=== PATIENT | male | born 1950 | race Caucasian/White ===

== ENCOUNTER 2019-09-01 03:13 | Observation (INO) | payer MEDICARE, OTHER ==
[2019-09-01 03:23] LABS: Glucose,Whole Blood 106 mg/dL (75-99)
--- NOTE | 2019-09-01 03:46 | ED ---
Altered Mental Status HPI - General Chief Complaint: Altered Mental Status Stated Complaint: Altered mental status Time Seen by Provider: 09/01/19 03:26 Source: EMS Mode of arrival: EMS - History of Present Illness Initial Comments: This patient is 69-year-old man brought to the emergency department by EMS. The patient reports that family member at activated EMS. Lasting he remembers he had gone to bed, but had gotten up to use the bathroom. He states that he then woke up on the floor. He believes that his cousin had phoned EMS. Patient denies any symptoms and states that he feels pre-well. Patient denies chest pain, dyspnea, palpitations. No neurologic symptoms. MD Complaint: confusion -: unknown - Related Data Allergies Allergy/AdvReac Type Severity Reaction Status Date / Time No Known Allergies Allergy Verified 09/01/19 03:22 Review of Systems ROS Statement: Those systems with pertinent positive or pertinent negative responses have been documented in the HPI. ROS Other: All systems not noted in ROS Statement are negative. Constitutional: Denies: fever, chills, weakness Eyes: Denies: vision change Respiratory: Denies: cough, dyspnea Cardiovascular: Reports: as per HPI, syncope. Denies: chest pain, palpitations, dyspnea on exertion, orthopnea, edema Gastrointestinal: Denies: abdominal pain, vomiting, diarrhea, melena, hematochezia Genitourinary: Denies: dysuria, hematuria Musculoskeletal: Denies: back pain Skin: Denies: rash Neurological: Reports: as per HPI, confusion. Denies: headache, weakness, numbness, paresthesias Past Medical History Past Medical History: Hyperlipidemia, Hypertension, Prostate Disorder History of Any Multi-Drug Resistant Organisms: None Reported Past Surgical History: Tonsillectomy Past Psychological History: Anxiety, Depression Smoking Status: Current every day smoker Past Alcohol Use History: None Reported Past Drug Use History: None Reported General Exam General appearance: alert, in no apparent distress Head exam: Present: atraumatic, normocephalic Eye exam: Present: normal appearance. Absent: scleral icterus, conjunctival injection ENT exam: Present: mucous membranes dry Neck exam: Present: normal inspection, full ROM. Absent: meningismus Respiratory exam: Present: normal lung sounds bilaterally. Absent: respiratory distress, wheezes, rales, rhonchi, stridor Cardiovascular Exam: Present: regular rate, normal rhythm, normal heart sounds. Absent: systolic murmur, diastolic murmur, rubs, gallop GI/Abdominal exam: Present: soft. Absent: distended, tenderness, guarding, rebound, rigid, mass, pulsatile mass Extremities exam: Present: normal inspection, normal capillary refill. Absent: pedal edema, calf tenderness Back exam: Present: normal inspection Neurological exam: Present: alert, oriented X3, CN II-XII intact. Absent: motor sensory deficit Skin exam: Present: warm, dry, intact, normal color. Absent: rash Course Vital Signs 09/01/19 09/01/19 09/01/19 03:15 04:28 05:21 Temperature 98.7 F Pulse Rate 99 101 H 102 H Respiratory 18 17 18 Rate Blood Pressure 129/89 123/89 137/97 O2 Sat by Pulse 96 97 99 Oximetry 09/01/19 06:12 Temperature 98.9 F Pulse Rate 94 Respiratory 20 Rate Blood Pressure 126/80 O2 Sat by Pulse 96 Oximetry Medical Decision Making - Lab Data Result diagrams: 09/01/19 03:20 09/01/19 03:20 Lab Results 09/01/19 09/01/19 09/01/19 Range/Units 03:20 03:20 03:20 WBC 10.1 (3.8-10.6) k/uL RBC 5.24 (4.30-5.90) m/uL Hgb 14.5 (13.0-17.5) gm/dL Hct 45.1 (39.0-53.0) % MCV 86.0 (80.0-100.0) fL MCH 27.6 (25.0-35.0) pg MCHC 32.1 (31.0-37.0) g/dL RDW 13.8 (11.5-15.5) % Plt Count 277 (150-450) k/uL Neutrophils % 74 % Lymphocytes % 14 % Monocytes % 6 % Eosinophils % 2 % Basophils % 1 % Neutrophils # 7.5 (1.3-7.7) k/uL Lymphocytes # 1.4 (1.0-4.8) k/uL Monocytes # 0.6 (0-1.0) k/uL Eosinophils # 0.2 (0-0.7) k/uL Basophils # 0.1 (0-0.2) k/uL PT 9.6 (9.0-12.0) sec INR 0.9 (<1.2) APTT 23.8 (22.0-30.0) sec Sodium 137 (137-145) mmol/L Potassium 4.5 (3.5-5.1) mmol/L Chloride 106 (98-107) mmol/L Carbon Dioxide 19 L (22-30) mmol/L Anion Gap 12 mmol/L BUN 39 H (9-20) mg/dL Creatinine 1.36 H (0.66-1.25) mg/dL Est GFR (CKD-EPI)AfAm 61 (>60 ml/min/1.73 sqM) Est GFR (CKD-EPI)NonAf 52 (>60 ml/min/1.73 sqM) Glucose 98 (74-99) mg/dL POC Glucose (mg/dL) (75-99) mg/dL POC Glu Home Health Care Case Manager ID Plasma Lactic Acid Ozzy (0.7-2.0) mmol/L Calcium 9.7 (8.4-10.2) mg/dL Total Bilirubin 0.4 (0.2-1.3) mg/dL AST 30 (17-59) U/L ALT 32 (21-72) U/L Alkaline Phosphatase 81 (38-126) U/L Troponin I (0.000-0.034) ng/mL Total Protein 7.0 (6.3-8.2) g/dL Albumin 4.2 (3.5-5.0) g/dL Urine Color Urine Appearance (Clear) Urine pH (5.0-8.0) Ur Specific [place] (1.001-1.035) Urine Protein (Negative) Urine Glucose (UA) (Negative) Urine Ketones (Negative) Urine Blood (Negative) Urine Nitrite (Negative) Urine Bilirubin (Negative) Urine Urobilinogen (<2.0) mg/dL Ur Leukocyte Esterase (Negative) Serum Alcohol <10 mg/dL 09/01/19 09/01/19 09/01/19 Range/Units 03:20 03:20 03:21 WBC (3.8-10.6) k/uL RBC (4.30-5.90) m/uL Hgb (13.0-17.5) gm/dL Hct (39.0-53.0) % MCV (80.0-100.0) fL MCH (25.0-35.0) pg MCHC (31.0-37.0) g/dL RDW (11.5-15.5) % Plt Count (150-450) k/uL Neutrophils % % Lymphocytes % % Monocytes % % Eosinophils % % Basophils % % Neutrophils # (1.3-7.7) k/uL Lymphocytes # (1.0-4.8) k/uL Monocytes # (0-1.0) k/uL Eosinophils # (0-0.7) k/uL Basophils # (0-0.2) k/uL PT (9.0-12.0) sec INR (<1.2) APTT (22.0-30.0) sec Sodium (137-145) mmol/L Potassium (3.5-5.1) mmol/L Chloride (98-107) mmol/L Carbon Dioxide (22-30) mmol/L Anion Gap mmol/L BUN (9-20) mg/dL Creatinine (0.66-1.25) mg/dL Est GFR (CKD-EPI)AfAm (>60 ml/min/1.73 sqM) Est GFR (CKD-EPI)NonAf (>60 ml/min/1.73 sqM) Glucose (74-99) mg/dL POC Glucose (mg/dL) 106 H (75-99) mg/dL POC Glu Home Health Care Case Manager ID Yadira Grant Plasma Lactic Acid Ozzy 1.3 (0.7-2.0) mmol/L Calcium (8.4-10.2) mg/dL Total Bilirubin (0.2-1.3) mg/dL AST (17-59) U/L ALT (21-72) U/L Alkaline Phosphatase (38-126) U/L Troponin I <0.012 (0.000-0.034) ng/mL Total Protein (6.3-8.2) g/dL Albumin (3.5-5.0) g/dL Urine Color Urine Appearance (Clear) Urine pH (5.0-8.0) Ur Specific [place] (1.001-1.035) Urine Protein (Negative) Urine Glucose (UA) (Negative) Urine Ketones (Negative) Urine Blood (Negative) Urine Nitrite (Negative) Urine Bilirubin (Negative) Urine Urobilinogen (<2.0) mg/dL Ur Leukocyte Esterase (Negative) Serum Alcohol mg/dL 09/01/19 Range/Units 05:12 WBC (3.8-10.6) k/uL RBC (4.30-5.90) m/uL Hgb (13.0-17.5) gm/dL Hct (39.0-53.0) % MCV (80.0-100.0) fL MCH (25.0-35.0) pg MCHC (31.0-37.0) g/dL RDW (11.5-15.5) % Plt Count (150-450) k/uL Neutrophils % % Lymphocytes % % Monocytes % % Eosinophils % % Basophils % % Neutrophils # (1.3-7.7) k/uL Lymphocytes # (1.0-4.8) k/uL Monocytes # (0-1.0) k/uL Eosinophils # (0-0.7) k/uL Basophils # (0-0.2) k/uL PT (9.0-12.0) sec INR (<1.2) APTT (22.0-30.0) sec Sodium (137-145) mmol/L Potassium (3.5-5.1) mmol/L Chloride (98-107) mmol/L Carbon Dioxide (22-30) mmol/L Anion Gap mmol/L BUN (9-20) mg/dL Creatinine (0.66-1.25) mg/dL Est GFR (CKD-EPI)AfAm (>60 ml/min/1.73 sqM) Est GFR (CKD-EPI)NonAf (>60 ml/min/1.73 sqM) Glucose (74-99) mg/dL POC Glucose (mg/dL) (75-99) mg/dL POC Glu Home Health Care Case Manager ID Plasma Lactic Acid Ozzy (0.7-2.0) mmol/L Calcium (8.4-10.2) mg/dL Total Bilirubin (0.2-1.3) mg/dL AST (17-59) U/L ALT (21-72) U/L Alkaline Phosphatase (38-126) U/L Troponin I (0.000-0.034) ng/mL Total Protein (6.3-8.2) g/dL Albumin (3.5-5.0) g/dL Urine Color Yellow Urine Appearance Clear (Clear) Urine pH 5.5 (5.0-8.0) Ur Specific [place] 1.017 (1.001-1.035) Urine Protein Negative (Negative) Urine Glucose (UA) Negative (Negative) Urine Ketones Negative (Negative) Urine Blood Negative (Negative) Urine Nitrite Negative (Negative) Urine Bilirubin Negative (Negative) Urine Urobilinogen <2.0 (<2.0) mg/dL Ur Leukocyte Esterase Negative (Negative) Serum Alcohol mg/dL - EKG Data -: EKG Interpreted by Ny EKG shows normal: sinus rhythm (Rate 97 bpm), intervals (RI interval 178 ms, normal. QRS duration 160 ms, prolonged consistent with the right bundle branch block.), QRS complexes (There is a right bundle-branch block and a left anterior fascicular block.), ST-T waves (Normal) Rate: normal Disposition Clinical Impression: Syncope Disposition: ADMITTED IP TO THIS [facility] Condition: Fair Referrals: None,Stated [REFERRING] - 1-2 days
--- NOTE | 2019-09-01 04:04 | XR ---
EXAMINATION TYPE: XR chest 1V portable DATE OF EXAM: 09/01/2019 COMPARISON: NONE HISTORY: Altered mental status TECHNIQUE: Single frontal view of the chest is obtained. FINDINGS: There is no heart failure nor confluent pneumonic infiltrate. Costophrenic angles are devendra r. There are chest leads. IMPRESSION: No active cardiopulmonary disease. Normal heart.
--- NOTE | 2019-09-01 04:05 | CT ---
EXAMINATION TYPE: CT brain wo con DATE OF EXAM: 09/01/2019 COMPARISON: None HISTORY: ams CT DLP: 1062.40 mGycm Automated exposure control for dose reduction was used. FINDINGS: There is some cerebral cortical atrophy. There is no mass effect nor midline shift. There is no sign of intracranial hemorrhage. The calvarium is intact. IMPRESSION: CEREBRAL ATROPHY. NO ACUTE INTRACRANIAL ABNORMALITY.
[2019-09-01 04:06] LABS: Basophils # (A) 0.1 k/uL (0-0.2); Basophils % (A) 1 %; Eosinophils # (A) 0.2 k/uL (0-0.7); Eosinophils % (A) 2 %; HCT 45.1 % (39.0-53.0); HGB 14.5 gm/dL (13.0-17.5); Lymphocytes # (A) 1.4 k/uL (1.0-4.8); Lymphocytes % (A) 14 %; MCH 27.6 pg (25.0-35.0); MCHC 32.1 g/dL (31.0-37.0); Mean Platelet Volume 6.8; Monocytes # (A) 0.6 k/uL (0-1.0); Monocytes % (A) 6 %; Neutrophils # (A) 7.5 k/uL (1.3-7.7); Neutrophils % (A) 74 %; Platelet Count 277 k/uL (150-450); RBC 5.24 m/uL (4.30-5.90); RDW 13.8 % (11.5-15.5); WBC 10.1 k/uL (3.8-10.6)
[2019-09-01 04:18] LABS: ALT 32 U/L (21-72); AST 30 U/L (17-59); African American GFR (CKD) 61 (>60 ml/min/1.73 sqM); Albumin 4.2 g/dL (3.5-5.0); Alcohol <10 mg/dL; Alkaline Phosphatase 81 U/L (38-126); Anion Gap 12 mmol/L; Blood Urea Nitrogen 39 mg/dL (9-20); Calcium 9.7 mg/dL (8.4-10.2); Carbon Dioxide 19 mmol/L (22-30); Chloride 106 mmol/L (98-107); Glucose 98 mg/dL (74-99); INR 0.9 (<1.2); Non-African American GFR(CKD) 52 (>60 ml/min/1.73 sqM); Partial Thromboplastin Time 23.8 sec (22.0-30.0); Potassium 4.5 mmol/L (3.5-5.1); Prothrombin Time 9.6 sec (9.0-12.0); Sodium 137 mmol/L (137-145); Total Bilirubin 0.4 mg/dL (0.2-1.3)
[2019-09-01 05:33] LABS: Appearance,Urine Clear (Clear); Bilirubin,Urine Negative (Negative); Blood,Urine Negative (Negative); Color,Urine Yellow; Glucose,Urine (UA) Negative (Negative); Ketones,Urine Negative (Negative); Leukocyte Esterase,Urine Negative (Negative); Nitrite,Urine Negative (Negative); PH, Urine 5.5 (5.0-8.0); Protein,Urine Negative (Negative); Specific Gravity,Urine 1.017 (1.001-1.035); Urobilinogen,Urine <2.0 mg/dL (<2.0)
[2019-09-01] MEDS ORDERED: NITROGLYCERIN SL TABS 0.4 MG TAB SUBLINGUAL PRN (06:22)
[2019-09-01] MEDS: SODIUM CHLORIDE 0.9% 1,000 ML IV SCH (07:37)
[2019-09-01 09:34] VITALS: BMI 30.4
[2019-09-01] MEDS ORDERED: ALPRAZolam 0.5 MG TAB PO PRN (13:46)
--- NOTE | 2019-09-01 16:16 | US ---
EXAMINATION TYPE: US carotid duplex BILAT DATE OF EXAM: 09/01/2019 COMPARISON: NONE CLINICAL HISTORY: syncope. Patient states falling over. HTN. No hx tia. EXAM MEASUREMENTS: RIGHT: Peak Systolic Velocity (PSV) cm/sec ----- Right CCA: 71.3 ----- Right ICA: 61.4 ----- Right ECA: 95.1 ICA/CCA ratio: 0.9 RIGHT: End Diastole cm/sec ----- Right CCA: 18.6 ----- Right ICA: 16.4 ----- Right ECA: 14.4 LEFT: Peak Systolic Velocity (PSV) cm/sec ----- Left CCA: 100.8 ----- Left ICA: 85.4 ----- Left ECA: 155.4 ICA/CCA ratio: 0.8 LEFT: End Diastole cm/sec ----- Left CCA: 24.5 ----- Left ICA: 24.1 ----- Left ECA: 25.3 VERTEBRALS (direction of flow): Right Vertebral: Antegrade Left Vertebral: Antegrade Rhythm: Normal No significant stenosis. Elevated left ECA. Plaque seen in bilateral bulbs extending into ICA. Ethan ateral wall thickening. IMPRESSION: There is antegrade flow in the vertebral arteries. The images and measurements suggest l ess than 50% stenosis in both internal carotid arteries. There is 50-70% stenosis in the left externa l carotid artery. Criteria for Assigning % of Stenosis / Diameter reduction (Estimation based on the indirect measurements of the internal carotid artery velocities (ICA PSV). 1. Normal (no stenosis)=ICA PSV < 125 cm/s: ratio < 2.0: ICA EDV<40 cm/s. 2. Less than 50% stenosis=ICA PSV < 125 cm/s: ratio < 2.0: ICA EDV<40 cm/s. 3. 50 to 69% stenosis=ICA PSV of 125 to 230 cm/s: ration 2.0 ? 4.0: ICA EDV 40-100 cm/s. 4. Greater than 70% stenosis to near occlusion= ICA PSV > 230 cm/s: ratio > 4.0: ICA EDV > 100 cm/s. 5. Near occlusion= ICA PSV velocities may be low or undetectable: variable ratio and ICA EDV. 6. Total occlusion=unable to detect flow.
--- NOTE | 2019-09-01 16:17 | HP ---
HISTORY AND PHYSICAL CHIEF COMPLAINT: Syncope. HISTORY OF PRESENT ILLNESS: This is the first known admission for this 69-year-old white male. He has been feeling dizzy on and off for the last 3 or 4 days. He has had no focal neurologic deficits, change in vision hearing, chest pain, palpitations, incontinence, etc. He has had no history of any neurologic problems in the past including CVAs, TIAs, seizures, head injuries, etc. Evaluation in the emergency room was unremarkable. He has never had a history of heart disease. In the emergency room, chest x-ray was unremarkable. CT of the brain demonstrated atrophy but nothing else. Electrocardiogram was sinus rhythm with incomplete right bundle branch block with no other obvious abnormalities. The laboratory studies unremarkable except for an elevated BUN and creatinine with a GFR of 52. Troponin was normal. Urine was clear. Blood alcohol was normal. He is not allergic to any medications. Surgically he has had a fracture of the hip. He does smoke but only 2-3 cigarettes a day. He does not drink alcohol. He has been told in the past that he has borderline diabetes. MEDICATIONS: At home he is on: Xanax 0.5 t.i.d. p.r.n., amlodipine 5 mg once a day. Atorvastatin 40 mg q.h.s., Wellbutrin 150 once a day, fenofibrate 48 mg once a day, hydrochlorothiazide 12.5 once a day, lisinopril 20 mg once a day, metoprolol 25 mg b.i.d., tamsulosin 0.4 once a day, and venlafaxine 150 mg once a day. PHYSICAL EXAMINATION: Blood pressure 137/91 with a pulse of 80, respirations 22, and he is afebrile. In general, he appeared to be in no acute distress. Skin color is normal. Skin is warm, dry. Lymph nodes not enlarged. Head, ears, eyes, nose, mouth and throat were normal. Carotids normal. There are no bruits. There is no neck vein distention. Chest is clear. Cardiac exam sounded like he is in sinus rhythm and no murmurs or extra sounds. Abdomen is slightly protuberant, soft, nontender without any visceromegaly or masses. Bowel sounds present. Extremities normal. Neurologically he is intact. IMPRESSION: He is admitted to the hospital with diagnoses of: 1. Syncopal episode, etiology unknown. 2. History of hypertension. 3. Chronic obstructive pulmonary disease. 4. Rule out arrhythmia, transient ischemic attack, seizure disorder, etc. PLAN: 1. Bed rest. 2. IV fluids. 3. Monitoring his vital signs and neurologic status. 4. EEG. 5. Echocardiogram. 6. Carotid duplex imaging. MMODL / IJN: [id number] /
[2019-09-01 16:24] LABS: Cholesterol 170 mg/dL (<200); HDL Cholesterol 35 mg/dL (40-60); LDL Cholesterol,Calculated 69 mg/dL (0-99); Triglycerides 330 mg/dL (<150)
[2019-09-01] MEDS: LISINOPRIL 20 MG TAB PO SCH (19:52)
[2019-09-01] MEDS: METOPROLOL TARTRATE 25 MG TAB PO SCH (19:52)
[2019-09-02] MEDS: SODIUM CHLORIDE 0.9% 1,000 ML IV SCH ×2 (05:12→08:43)
[2019-09-02 07:26] LABS: Cholesterol 165 mg/dL (<200); HDL Cholesterol 36 mg/dL (40-60); LDL Cholesterol,Calculated 75 mg/dL (0-99); Triglycerides 270 mg/dL (<150)
[2019-09-02] MEDS: ATORVASTATIN 40 MG TAB PO SCH (08:42)
[2019-09-02] MEDS: TAMSULOSIN 0.4 MG CAP.ER.24H PO SCH (08:42)
[2019-09-02] MEDS: VENLAFAXINE HCL ER 150 MG CAP PO SCH (08:42)
[2019-09-02] MEDS: LISINOPRIL 20 MG TAB PO SCH ×2 (08:42→20:12)
[2019-09-02] MEDS: ASPIRIN 325 MG TAB PO SCH (08:42)
[2019-09-02] MEDS: buPROPion XL 150 MG TAB.ER.24H PO SCH (08:42)
[2019-09-02] MEDS: HYDROCHLOROTHIAZIDE 12.5 MG CAP PO SCH (08:42)
[2019-09-02] MEDS: METOPROLOL TARTRATE 25 MG TAB PO SCH ×2 (08:42→20:12)
[2019-09-02] MEDS: FENOFIBRATE 54 MG TAB PO SCH (08:42)
[2019-09-02] MEDS: amLODIPine 5 MG TAB PO SCH (08:42)
[2019-09-02 09:13] VITALS: RESP 16
[2019-09-02] MEDS ORDERED: ACETAMINOPHEN TAB 325 MG TAB PO PRN (12:24)
--- NOTE | 2019-09-02 14:28 | PN ---
PROGRESS NOTE CHIEF COMPLAINT: Syncope. HISTORY OF PRESENT ILLNESS: This gentleman is doing well. He has had no problems. He has had no dizziness, black outs, lightheadedness, focal neurologic problems, chest pain, etc. PHYSICAL EXAMINATION: Chest is clear and cardiac exam is normal. Abdomen is soft and nontender without any masses or visceromegaly. Neurologically he is intact. Laboratory studies reveal 50 to 70% stenosis in the left external carotid, but otherwise no other abnormality. PHYSICAL EXAM: Temp is 97.8 with a pulse of 82, blood pressure 157/84. The remainder of the exam is normal. IMPRESSION: Syncope, etiology unknown. PLAN: Increase activity. If he has no further difficulty, we will probably let him go home tomorrow. MMODL / IJN: [id number] /
[2019-09-03 07:44] VITALS: BP 123/72; PULSE 75; TEMP 98.2
[2019-09-03] MEDS: FENOFIBRATE 54 MG TAB PO SCH (09:53)
[2019-09-03] MEDS: ASPIRIN 325 MG TAB PO SCH (09:53)
[2019-09-03] MEDS: ATORVASTATIN 40 MG TAB PO SCH (09:53)
[2019-09-03] MEDS: buPROPion XL 150 MG TAB.ER.24H PO SCH (09:53)
[2019-09-03] MEDS: amLODIPine 5 MG TAB PO SCH (09:54)
[2019-09-03] MEDS: METOPROLOL TARTRATE 25 MG TAB PO SCH (09:54)
[2019-09-03] MEDS: TAMSULOSIN 0.4 MG CAP.ER.24H PO SCH (09:54)
[2019-09-03] MEDS: HYDROCHLOROTHIAZIDE 12.5 MG CAP PO SCH (09:54)
[2019-09-03] MEDS: VENLAFAXINE HCL ER 150 MG CAP PO SCH (09:54)
[2019-09-03] MEDS: LISINOPRIL 20 MG TAB PO SCH (09:54)
--- NOTE | 2019-09-03 11:52 | ECHOF ---
Referral Reason:syncope MEASUREMENTS -------- HEIGHT: 182.9 cm WEIGHT: 104.3 kg BP: 106/67 RVIDd: 3.8 cm (< 3.3) IVSd: 1.9 cm (0.6 - 1.1) LVIDd: 3.4 cm (3.9 - 5.3) LVPWd: 1.9 cm (0.6 - 1.1) IVSs: 2.2 cm LVIDs: 2.3 cm LVPWs: 2.5 cm LAESV Index (A-L): 27.05 ml/m Ao Diam: 2.8 cm (2.0 - 3.7) AV Cusp: 2.2 cm (1.5 - 2.6) LA Diam: 4.1 cm (2.7 - 3.8) MV EXCURSION: 10.716 mm (> 18.000) MV EF SLOPE: 48 mm/s (70 - 150) EPSS: 0.9 cm MV E Anshu: 0.69 m/s MV DecT: 142 ms MV A Anshu: 1.22 m/s MV E/A Ratio: 0.56 AV maxP.09 mmHg AV meanP.85 mmHg RAP: 5.00 mmHg RVSP: 29.01 mmHg FINDINGS -------- Sinus rhythm. This was a technically adequate study. The left ventricular size is normal. There is severe concentric left ventricular hypertrophy. Ove rall left ventricular systolic function is normal with, an EF between 55 - 60 %. The diastolic fill ing pattern is normal for the age of the patient 13.04. The right ventricle is mildly enlarged. Normal LA size by volume 22+/-6 ml/m2. The right atrial size is normal. Interatrial and interventricular septum intact. The aortic valve was not well visualized. There is no evidence of aortic regurgitation. There is no evidence of aortic stenosis. No mitral regurgitation. Mild tricuspid regurgitation present. There is no evidence of pulmonary hypertension. The right v entricular systolic pressure, as measured by Doppler, is 29.01mmHg. There is no pulmonic regurgitation present. The aortic root size is normal. Normal inferior vena cava with normal inspiratory collapse consistent with estimated right atrial pre ssure of 5 mmHg. There is no pericardial effusion. CONCLUSIONS -------- 1. Sinus rhythm. 2. This was a technically adequate study. 3. The left ventricular size is normal. 4. There is severe concentric left ventricular hypertrophy. 5. Overall left ventricular systolic function is normal with, an EF between 55 - 60 %. 6. The diastolic filling pattern is normal for the age of the patient 13.04 7. The right ventricle is mildly enlarged. 8. Normal LA size by volume 22+/-6 ml/m2. 9. The right atrial size is normal. 10. Interatrial and interventricular septum intact. 11. The aortic valve was not well visualized. 12. There is no evidence of aortic regurgitation. 13. There is no evidence of aortic stenosis. 14. No mitral regurgitation. 15. Mild tricuspid regurgitation present. 16. There is no evidence of pulmonary hypertension. 17. The right ventricular systolic pressure, as measured by Doppler, is 29.01mmHg. 18. There is no pulmonic regurgitation present. 19. The aortic root size is normal. 20. Normal inferior vena cava with normal inspiratory collapse consistent with estimated right atrial pressure of 5 mmHg. 21. There is no pericardial effusion. COLLISION ESTIMATOR: Ángela Dumont RDCS
--- NOTE | 2019-09-03 19:48 | DS ---
DISCHARGE SUMMARY CHIEF COMPLAINT: Syncope. HISTORY OF PRESENT ILLNESS AND PHYSICAL EXAM: Details of this man's history and physical can be found in the initial workup. LABORATORY STUDIES: While he was in the hospital, he had laboratory studies, details of which can be found in the laboratory section of his chart. COURSE IN HOSPITAL: After admission he was placed on bedrest, on telemetry and he had no further problems. He had no lightheadedness, dizziness, syncope, etc. Neurologic and cardiac studies that were reported out were unremarkable. It was felt he could be discharged to outpatient followup on the and he will go home on his usual activity, diet and medications. He will be seen in the office in several days and his workup will continue. FINAL DIAGNOSIS: Syncope, etiology unknown. OPERATIONS: None. CONSULTATIONS: None. He is improved. MMAGUSTINL / SONIN: [id number] /
--- NOTE | 2019-09-03 22:45 | EEG ---
ELECTROENCEPHALOGRAM REPORT PROCEDURE DATE: 09/03/2019. ELECTROENCEPHALOGRAM (EEG) REPORT: TECHNIQUE: A routine 18 channel EEG was performed with video using the 10/20 international electrode placement system. HISTORY: Syncope. Patient presented to the emergency room after having dizzy spells for the last 3-4 days. OTHER MEDICAL HISTORY: Includes hyperlipidemia, hypertension. CURRENT MEDICATIONS: Xanax, Effexor, Flomax, metoprolol, lisinopril, hydrochlorothiazide. STUDY DURATION: 25 minutes. FINDINGS: BACKGROUND: The background activity consists of 8-9 hertz rhythmic waveforms symmetrically distributed over both posterior quadrants. ACTIVATION: Hyperventilation: Not performed. Photic stimulation: Symmetric driving seen. Sleep: None. ABNORMALITIES: None. Please note that 1 channel of this EEG was dedicated to EKG. It demonstrated a sinus rhythm. IMPRESSION: Normal EEG. No epileptiform activity was present. No seizures were recorded. MMODL / IJN: [id number] / MTDD
== END 2019-09-03 17:30 | disposition home or self-care (01) ==
LOC: EC 03:13 → 4SSUR 06:22
PROVIDERS: ADMIT Family Medicine; ATTEND Family Medicine
DX: R55 Syncope and collapse (principal); R42 Dizziness and giddiness; R41.0 Disorientation, unspecified; J44.9 Chronic obstructive pulmonary disease, unspecified; I65.22 Occlusion and stenosis of left carotid artery; R79.89 Other specified abnormal findings of blood chemistry; I45.10 Unspecified right bundle-branch block; I10 Essential (primary) hypertension; E78.5 Hyperlipidemia, unspecified; N42.9 Disorder of prostate, unspecified; F41.9 Anxiety disorder, unspecified; F32.9 Major depressive disorder, single episode, unspecified; R73.03 Prediabetes; F17.210 Nicotine dependence, cigarettes, uncomplicated; Z79.899 Other long term (current) drug therapy; Z87.81 Personal history of (healed) traumatic fracture; R94.4 Abnormal results of kidney function studies
CPT/HCPCS: 99285; 36415; 94760; 95816; 93005 ×2; 93306; 97116; 97162; 97166; 85379; 80061 ×2; 80053; 83605; 84484; 85025; 85610; 85730; 81003; 80320; 71045; 93880; 70450; G0378 ×3

== ENCOUNTER 2023-10-16 10:07 | Emergency (ER) | payer MEDICARE, OTHER ==
[2023-10-16] MEDS ORDERED: SODIUM CHLORIDE 0.9% 1,000 ML IV STA (10:13)
[2023-10-16 10:36] VITALS: RESP 18; TEMP 98.8
--- NOTE | 2023-10-16 10:38 | ED ---
Extremity Problem HPI - General Chief complaint: Extremity Injury, Lower Stated complaint: L Leg Pain Time Seen by Provider: 10/16/23 10:09 Source: patient, EMS, RN notes reviewed Mode of arrival: EMS Limitations: no limitations - History of Present Illness Initial comments: This is a 73-year-old male who presents to the emergency department for left leg pain and diarrhea. Patient reports that he had been struggling with diarrhea and dehydration for the last couple of weeks. This temporarily improved but then resumed again. However his larger concern is that yesterday his left leg has been notably swollen and firm. This is also very painful. Denies any history of similar symptoms in the past. He has no history of blood clots and is not taking any blood thinners. Denies any chest pain or shortness of breath. MD Complaint: extremity pain, extremity swelling - Related Data Home Medications Medication Instructions Recorded Confirmed ALPRAZolam [Xanax] 0.5 mg PO TID PRN 09/01/19 09/01/19 Acetaminophen Tab [Tylenol] 650 mg PO Q6H PRN 09/01/19 09/01/19 Atorvastatin [Lipitor] 40 mg PO DAILY 09/01/19 09/01/19 Fenofibrate Nanocrystallized 48 mg PO DAILY 09/01/19 09/01/19 [Fenofibrate] Metoprolol Tartrate [Lopressor] 25 mg PO BID 09/01/19 09/01/19 Tamsulosin HCl [Flomax] 0.4 mg PO DAILY 09/01/19 09/01/19 Venlafaxine HCl ER [Effexor XR] 150 mg PO W/BRKFST 09/01/19 09/01/19 amLODIPine [Norvasc] 5 mg PO DAILY 09/01/19 09/01/19 buPROPion XL [Wellbutrin XL] 150 mg PO DAILY 09/01/19 09/01/19 hydroCHLOROthiazide 12.5 mg PO DAILY 09/01/19 09/01/19 lisinopriL [Zestril] 20 mg PO BID 09/01/19 09/01/19 Previous Rx's Medication Instructions Recorded Aspirin 325 mg PO DAILY #100 tab 09/03/19 Apixaban [Eliquis Starter Pack 5 - 10 mg PO DIRECTED 30 Days 10/16/23 (for VTE)] #1 each Allergies Allergy/AdvReac Type Severity Reaction Status Date / Time No Known Allergies Allergy Verified 10/16/23 10:15 Review of Systems ROS Statement: Those systems with pertinent positive or pertinent negative responses have been documented in the HPI. ROS Other: All systems not noted in ROS Statement are negative. Past Medical History Past Medical History: Hyperlipidemia, Hypertension, Prostate Disorder Additional Past Medical History / Comment(s): Kidney Stone. Right hip fracture History of Any Multi-Drug Resistant Organisms: None Reported Past Surgical History: Tonsillectomy Additional Past Surgical History / Comment(s): Right Hip Fracture nailing; reports nails and screws have since been removed Past Anesthesia/Blood Transfusion Reactions: No Reported Reaction Past Psychological History: Anxiety, Depression Smoking Status: Former smoker Past Alcohol Use History: None Reported Past Drug Use History: None Reported - Past Family History Father Family Medical History: Cancer Mother Family Medical History: Diabetes Mellitus Additional Family Medical History / Comment(s): in her 60s Brother(s) Family Medical History: No Reported History General Exam Limitations: no limitations General appearance: alert, in no apparent distress Head exam: Present: atraumatic, normocephalic, normal inspection Respiratory exam: Present: normal lung sounds bilaterally. Absent: respiratory distress, wheezes, rales, rhonchi, stridor Cardiovascular Exam: Present: regular rate, normal rhythm, normal heart sounds. Absent: systolic murmur, diastolic murmur, rubs, gallop, clicks Extremities exam: Present: other (Left leg is swollen, firm, and erythematous. ) Neurological exam: Present: alert, oriented X3, CN II-XII intact Psychiatric exam: Present: normal affect, normal mood Skin exam: Present: warm, dry, intact Course Vital Signs 10/16/23 10/16/23 10:09 11:59 Temperature 98.8 F Pulse Rate 80 71 Respiratory 18 18 Rate Blood Pressure 111/82 114/75 O2 Sat by Pulse 100 98 Oximetry Medical Decision Making - Medical Decision Making This is a 73-year-old male who presents to the emergency department for left leg pain. Was pt. sent in by a medical professional or institution? @ -No Did you speak to anyone other than the patient for history? @ -No Did you review nursing and triage notes? @ -Yes, and I agree, it is accurate with regards to the patient's symptoms. Were old charts reviewed? @ -No Differential Diagnosis? @ -Differential Leg Pain: Leg fracture, leg sprain, DVT, PVD, arterial insufficiency, iliac artery aneurysm, cellulitis, compartment syndrome, tendinopathy, nerve entrapment, piriformis syndrome, osteoarthritis, rhabdomyolysis, myositis, cramping from an electrolyte imbalance, this is not meant to be an all inclusive list. EKG interpreted by me (3pts min.)? @ -EKG interpreted by me demonstrating the following: Sinus rhythm. Ventricular rate 76 BPM, NM interval 183 ms, QRS duration 162 ms, QTc 419 ms. X-rays interpreted by me (1pt min.)? @ -Not obtained CT interpreted by me (1pt min.)? @ -Not obtained U/S interpreted by me (1pt. min.)? @ -Duplex US of the left lower extremity obtained. My interpretation identifies a DVT. What testing was considered but not performed? (CT, X-rays, U/S, labs)? Why? @ -None What meds were considered but not given? Why? @ -None Did you discuss the management of the patient with other professionals? @ -No Did you reconcile home meds? @ -No Was smoking cessation discussed for >3mins.? @ -No Was critical care preformed (if so, how long)? @ -No Were there social determinants of health that impacted care today? How? (Homelessness, low income, unemployed, alcoholism, drug addiction, transportation, low edu. Level, literacy, decrease access to med. care, retirement, rehab)? @ -No Was there de-escalation of care discussed even if they declined? (Discuss DNR or withdrawal of care, Hospice)? @ -No What co-morbidities impacted this encounter? (DM, HTN, Smoking, COPD, CAD, Cancer, CVA, Hep., AIDS, mental health diagnosis, sleep apnea, morbid obesity)? @ -HLD, HTN Was patient admitted / discharged? @ -Discharged. Lab work obtained revealing mild leukocytosis and CRP elevation. Kidney function is decreased, however there are no prior values for comparison. Patient treated with IV fluids. He declined the need for pain medication in the emergency department. Duplex ultrasound of the left lower extremity obtained revealing a DVT extending from the left common femoral vein to the proximal calf. Findings reviewed with the patient. He had no tac hycardia, chest pain, or shortness of breath to suggest progression to a PE. Patient given a prescription for Eliquis starter pack. He was otherwise discharged home in stable condition with instruction to have close follow up with his PCP. Undiagnosed new problem with uncertain prognosis? @ -None Drug Therapy requiring intensive monitoring for toxicity (Heparin, Nitro, Insulin, Cardizem)? @ -None Were any procedures done? @ -None Diagnosis/symptom? @ -Diarrhea, DVT Acute, or Chronic, or Acute on Chronic? @ -Acute Uncomplicated (without systemic symptoms) or Complicated (systemic symptoms)? @ -Uncomplicated Side effects of treatment? @ -None Exacerbation, Progression, or Severe Exacerbation] @ -Not applicable Poses a threat to life or bodily function? @ -This will depend on how his symptoms progress Return precautions reviewed in depth, the patient is instructed to return to the emergency department with any new, worsening, or concerning symptoms. Patient verbalized understanding. This case was discussed in detail with the attending ED physician, Dr. Cross. Presentation, findings, and treatment plan discussed in detail as well. - Lab Data Result diagrams: 10/16/23 10:22 10/16/23 10:22 Lab Results 10/16/23 10/16/23 10/16/23 Range/Units 10:22 10:22 10:22 WBC 11.9 H (3.8-10.6) k/uL RBC 5.58 (4.30-5.90) m/uL Hgb 15.6 (13.0-17.5) gm/dL Hct 46.2 (39.0-53.0) % MCV 82.8 (80.0-100.0) fL MCH 27.9 (25.0-35.0) pg MCHC 33.7 (31.0-37.0) g/dL RDW 13.4 (11.5-15.5) % Plt Count 231 (150-450) k/uL MPV 8.1 Neutrophils % 83 % Lymphocytes % 7 % Monocytes % 7 % Eosinophils % 1 % Basophils % 0 % Neutrophils # 9.9 H (1.3-7.7) k/uL Lymphocytes # 0.9 L (1.0-4.8) k/uL Monocytes # 0.8 (0-1.0) k/uL Eosinophils # 0.2 (0-0.7) k/uL Basophils # 0.1 (0-0.2) k/uL Sodium 138 (137-145) mmol/L Potassium 4.2 (3.5-5.1) mmol/L Chloride 104 (98-107) mmol/L Carbon Dioxide 20 L (22-30) mmol/L Anion Gap 14 mmol/L BUN 46 H (9-20) mg/dL Creatinine 1.50 H (0.66-1.25) mg/dL Est GFR (CKD-EPI)AfAm 53 (>60 ml/min/1.73 sqM) Est GFR (CKD-EPI)NonAf 45 (>60 ml/min/1.73 sqM) Glucose 124 H (74-99) mg/dL Plasma Lactic Acid Ozzy 2.0 (0.7-2.0) mmol/L Calcium 9.7 (8.4-10.2) mg/dL Total Bilirubin 0.8 (0.2-1.3) mg/dL AST 21 (17-59) U/L ALT 20 (4-49) U/L Alkaline Phosphatase 77 (38-126) U/L C-Reactive Protein 6.6 H (<1.0) mg/dL Total Protein 6.7 (6.3-8.2) g/dL Albumin 3.7 (3.5-5.0) g/dL - Radiology Data Radiology results: report reviewed, image reviewed Disposition Clinical Impression: Diarrhea, Left leg DVT Disposition: HOME SELF-CARE Instructions (If sedation given, give patient instructions): Deep Vein Thrombosis (ED) Additional Instructions: Return to the emergency department with any new, worsening, or concerning symptoms. Take the Eliquis as prescribed for 30 days. Alternate with ibuprofen and Tylenol as needed for pain relief. Follow up with your primary care provider in 1-2 days. Prescriptions: Apixaban [Eliquis Starter Pack (for VTE)] 5 - 10 mg PO DIRECTED 30 Days #1 each Is patient prescribed a controlled substance at d/c from ED?: No Referrals: Richar Umana MD [Primary Care Provider] - 1-2 days
[2023-10-16 10:43] LABS: Basophils # (A) 0.1 k/uL (0-0.2); Basophils % (A) 0 %; Eosinophils # (A) 0.2 k/uL (0-0.7); Eosinophils % (A) 1 %; HCT 46.2 % (39.0-53.0); HGB 15.6 gm/dL (13.0-17.5); Lymphocytes # (A) 0.9 k/uL (1.0-4.8); Lymphocytes % (A) 7 %; MCH 27.9 pg (25.0-35.0); MCHC 33.7 g/dL (31.0-37.0); MCV 82.8 fL (80.0-100.0); Mean Platelet Volume 8.1; Monocytes # (A) 0.8 k/uL (0-1.0); Monocytes % (A) 7 %; Neutrophils # (A) 9.9 k/uL (1.3-7.7); Neutrophils % (A) 83 %; Platelet Count 231 k/uL (150-450); RBC 5.58 m/uL (4.30-5.90); RDW 13.4 % (11.5-15.5); WBC 11.9 k/uL (3.8-10.6)
[2023-10-16 10:54] LABS: ALT 20 U/L (4-49); AST 21 U/L (17-59); African American GFR (CKD) 53 (>60 ml/min/1.73 sqM); Albumin 3.7 g/dL (3.5-5.0); Alkaline Phosphatase 77 U/L (38-126); Anion Gap 14 mmol/L; Blood Urea Nitrogen 46 mg/dL (9-20); C Reactive Protein 6.6 mg/dL (<1.0); Calcium 9.7 mg/dL (8.4-10.2); Carbon Dioxide 20 mmol/L (22-30); Chloride 104 mmol/L (98-107); Glucose 124 mg/dL (74-99); Non-African American GFR(CKD) 45 (>60 ml/min/1.73 sqM); Potassium 4.2 mmol/L (3.5-5.1); Sodium 138 mmol/L (137-145); Total Bilirubin 0.8 mg/dL (0.2-1.3); Total Protein 6.7 g/dL (6.3-8.2)
--- NOTE | 2023-10-16 11:55 | US ---
EXAMINATION TYPE: US venous doppler duplex LE LT DATE OF EXAM: 10/16/2023 10:14 AM COMPARISON: NONE CLINICAL INDICATION: Male, 73 years old with history of Left leg pain and swelling; SIDE PERFORMED: Left TECHNIQUE: The lower extremity deep venous system is examined utilizing real time linear array sonog yuliet with graded compression, doppler sonography and color-flow sonography. VESSELS IMAGED: Common Femoral Vein Deep Femoral Vein Greater Saphenous Vein * Femoral Vein Popliteal Vein Small Saphenous Vein * Proximal Calf Veins (* superficial vessels) Left Leg: Positive for DVT EIV through proximal calf veins Findings communicated to Dr. Orly Lombardi, PAC on 10/16/2023 11:[address] Theo Jacob. IMPRESSION: Positive deep vein thrombosis extending from the left common femoral vein/external iliac vein to the proximal calf
[2023-10-16 12:13] VITALS: BP 114/75; PULSE 71
[2023-10-16] MEDS ORDERED: ACET/COD 300 MG/30 MG STARTER PACK 6 TAB BTL PO STA (12:22)
== END 2023-10-16 12:57 | disposition home or self-care (01) ==
LOC: EC 10:07
DX: I82.402 Acute embolism and thrombosis of unspecified deep veins of left lower extremity (principal); R19.7 Diarrhea, unspecified; I10 Essential (primary) hypertension; E78.5 Hyperlipidemia, unspecified; F41.9 Anxiety disorder, unspecified; F32.A Depression, unspecified; Z79.899 Other long term (current) drug therapy; Z87.891 Personal history of nicotine dependence
CPT/HCPCS: 36415; 80053; 83605; 85025; 86140; 93005; 96360; 99284

== ENCOUNTER → 2023-11-14 | Outpatient (CLI) | payer MEDICARE, OTHER ==
--- NOTE | 2023-11-14 17:57 | CTL ---
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 , history of tobacco use. COMPARISON: None. TECHNIQUE: Multiple axial non-contrast scans were obtained from approximately the lung apices through the upper abdomen. Coronal and sagittal reformatted images were obtained. Low dose technique was uti lized. CT DLP: 97.2 mGycm, Automated exposure control for dose reduction was used. CT Contrast: Contrast used: None Oral contrast used: None FINDINGS: ======== Lack of intravenous contrast and low dose technique limits the evaluation of the vascular and soft ti ssue structures. LUNGS: No evidence of pulmonary fibrosis. No evidence of focal consolidation, pneumothorax or pleural effusion. Mild centrilobular emphysema changes. Nodules: RUL: None. RML: None. RLL: 5 mm series 5 image 43.. NAI: None. LLL: None. AIRWAY: Patent and unremarkable. HEART: Heart is close of the coronary arteries. MEDIASTINUM: No gross evidence of adenopathy. VASCULATURE: No aortic aneurysm. MUSCULOSKELETAL: No acute osseous abnormalities SOFT TISSUES/LYMPH NODES: Unremarkable. LOWER NECK: No significant findings. UPPER ABDOMEN: No significant findings. IMPRESSION: 1. 5 mm right lower lobe pulmonary nodule. 2. Mild emphysema. CT LUNG RAD AND CT CHEST RECOMMENDATION: Lung-Rad 2 Benign Appearance or Behavior: Continue annual sc reening with LDCT in 12 months. S Modifier (other clinically significant findings): None Recommend smoking cessation (if current smoker), or continuation of smoking cessation (if prior smoke r). Annual screening for lung cancer with low-dose computed tomography is recommended in adults ages 55 to 77 years who have a 30 pack-year smoking history and currently smoke or have quit within the pa st 15 years. Screening should be discontinued once a person has not smoked for 15 years or develops a health problem that substantially limits life expectancy or the ability or willingness to have curat sathish lung surgery. Lung rads 2021 [email or web address]
== END | disposition home or self-care (01) ==
LOC: RADCTMAIN 15:53
PROVIDERS: ATTEND Internal Medicine
DX: Z12.2 Encounter for screening for malignant neoplasm of respiratory organs (principal); F17.210 Nicotine dependence, cigarettes, uncomplicated; J43.2 Centrilobular emphysema; R91.1 Solitary pulmonary nodule
CPT/HCPCS: 71271

== ENCOUNTER → 2023-12-14 | Outpatient (CLI) | payer MEDICARE ==
[2023-12-14 12:58] LABS: African American GFR (CKD) >90 (>60 ml/min/1.73 sqM); Blood Urea Nitrogen 29 mg/dL (9-20); Non-African American GFR(CKD) 81 (>60 ml/min/1.73 sqM)
--- NOTE | 2023-12-14 14:22 | CT ---
EXAMINATION TYPE: CT abdomen pelvis w con DATE OF EXAM: 12/14/2023 COMPARISON: Low dose CT of the chest on 11/14/2023. HISTORY: Generalized abdominal pain, chronic diarrhea CT DLP: 618 mGycm Automated exposure control for dose reduction was used. TECHNIQUE: Helical acquisition of images was performed from the lung bases through the pelvis. CONTRAST: Performed with Oral Contrast and with IV Contrast, patient injected with 100 mL of Isovue 300. FINDINGS: LOWER CHEST : 4 - 5 mm right lower lobe nodule was described on the low dose chest CT performed the same day. ABDOMEN: Liver and Biliary system: Normal. Adrenal glands: Right adrenal nodule measures 1.7 cm in diameter and is favored to be benign in the absence of known malignancy. There is also a adrenal nodule in the lateral limb on the left side saad uring 1 cm in diameter.. Kidneys and ureters: Normal. Spleen: Normal. Pancreas: Normal. Gallbladder: Small gallstones are seen within the gallbladder. Lymph nodes, Peritoneum and mesentery: There is no mesenteric or retroperitoneal lymphadenopathy. Gastrointestinal tract: There are no dilated loops of bowel or free intraperitoneal air. The appe ndix is normal. There is mild sigmoid colonic diverticulosis without evidence of diverticulitis. Aorta/IVC: There is moderate vascular calcification throughout the abdominal aorta without evidence of aneurysmal dilation or dissection. IVC normal. Abdominal wall: Normal. PELVIS: Fluid: There is no free fluid in the pelvis. Lymph Nodes: There is no pelvic or inguinal lymphadenopathy.. Urinary bladder: The prostate is significantly enlarged indenting the base of the bladder.. BONES: Scattered degenerative disc and facet changes are seen throughout the spine. There are no acu te osseous abnormalities. ADDITIONAL SIGNIFICANT FINDINGS: None. IMPRESSION: 1. No acute process seen within the abdomen or pelvis. 2. Diverticulosis without evidence of diverticulitis. 3. Nonspecific bilateral adrenal nodules. These remain indeterminate, however are favored to be benig n in the absence of known malignancy. No priors are available for comparison. 4. Marked prostatomegaly.
--- NOTE | 2023-12-14 16:16 | US ---
EXAMINATION TYPE: US venous doppler duplex LE BI DATE OF EXAM: 12/14/2023 3:02 PM COMPARISON: 10/16/2023. CLINICAL INDICATION: Male, 73 years old with history of I82.492ACUTE EMBOLISM AND THROMBOSIS OF DEEP VEIN OF L LOW; SIDE PERFORMED: Bilateral TECHNIQUE: The lower extremity deep venous system is examined utilizing real time linear array sonog yuliet with graded compression, doppler sonography and color-flow sonography. VESSELS IMAGED: Common Femoral Vein Deep Femoral Vein Greater Saphenous Vein * Femoral Vein Popliteal Vein Small Saphenous Vein * Proximal Calf Veins (* superficial vessels) Right Leg: Negative for DVT Left Leg: Still has appearance of extensive non occluding thrombus within left proximal calf vein up through lt groin, internal echoes that did not compress IMPRESSION: 1. No evidence of right-sided deep venous thrombosis. 2. Extensive left deep venous thrombus persists within the calf up to the left groin.
== END | disposition home or self-care (01) ==
LOC: RADCTMAIN 11:50
PROVIDERS: ATTEND Internal Medicine Hematology & Oncology
DX: N40.0 Benign prostatic hyperplasia without lower urinary tract symptoms (principal); K57.30 Diverticulosis of large intestine without perforation or abscess without bleeding; E27.8 Other specified disorders of adrenal gland; I82.492 Acute embolism and thrombosis of other specified deep vein of left lower extremity; I10 Essential (primary) hypertension; A09 Infectious gastroenteritis and colitis, unspecified
CPT/HCPCS: 82565; 84520; 93970; 74177; 36415; Q9967

== ENCOUNTER → 2024-04-05 | Outpatient (CLI) | payer MEDICARE ==
--- NOTE | 2024-04-05 13:20 | US ---
EXAMINATION TYPE: US venous doppler duplex LE LT DATE OF EXAM: 04/05/2024 1:05 PM COMPARISON: US 12/14/2023 and 10/16/2023 CLINICAL INDICATION: Male, 74 years old with history of I82.492 ACUTE EMBOLISM; Hx of DVT seen on nneka or US*. Patient is on eliquis. SIDE PERFORMED: Left TECHNIQUE: The lower extremity deep venous system is examined utilizing real time linear array sonog yuliet with graded compression, doppler sonography and color-flow sonography. VESSELS IMAGED: Common Femoral Vein Deep Femoral Vein Greater Saphenous Vein * Femoral Vein Popliteal Vein Small Saphenous Vein * Proximal Calf Veins (* superficial vessels) Left Leg: Appears positive for DVT. CFV/GSV and femoral vein appear to compress incompletely. Color defect noted. Internal echoes seen in portion of GSV and proximal femoral vein. Left popliteal vein does not compress. No color flow seen within the left popliteal vein or prox calf veins. IMPRESSION: Persistent Deep vein thrombosis extending from the common femoral vein which is incomplet ashley occlusive into the distal leg with no color Doppler flow seen within the popliteal vein or proxim al calf veins.
== END | disposition home or self-care (01) ==
LOC: RADUSWWP 12:37
PROVIDERS: ATTEND Internal Medicine Hematology & Oncology
DX: I82.412 Acute embolism and thrombosis of left femoral vein (principal); R10.84 Generalized abdominal pain; A09 Infectious gastroenteritis and colitis, unspecified; I10 Essential (primary) hypertension

== ENCOUNTER 2024-12-31 15:23 | Emergency (ER) | payer MEDICARE ==
--- NOTE | 2024-12-31 15:37 | ED ---
General Adult HPI - General Source: patient, RN notes reviewed <Lyudmila Nick - Last Filed: 12/31/24 15:35> <Violetta Block - Last Filed: 01/01/25 01:59> - General Stated complaint: blood in urine Time Seen by Provider: 12/31/24 15:36 - History of Present Illness Initial comments: quick [id number] male presenting to the emergency department chief complaint of for hematuria over the past 2 days. He endorses mild lightheadedness and passage of urinary clots. Denies flank pain, abdominal pain, dysuria. 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 (Lyudmila Nick) 74-year-old male presenting with chief complaint of hematuria. Patient is seen blood in his urine for the past 2 days. He is having no abdominal pain, back pain, dysuria. Patient does take Eliquis for history of DVT. He reports he has not taken his last 2 doses and it seems that there is less blood in his urine now. He is also seen blood clots in his urine. He is a smoker. No fever. No vomiting. No difficulty urinating. No urgency or frequency. (Violetta Block) - Related Data Home Medications Medication Instructions Recorded Confirmed ALPRAZolam [Xanax] 0.5 mg PO TID PRN 09/01/19 09/01/19 Acetaminophen Tab [Tylenol] 650 mg PO Q6H PRN 09/01/19 09/01/19 Atorvastatin [Lipitor] 40 mg PO DAILY 09/01/19 09/01/19 Fenofibrate Nanocrystallized 48 mg PO DAILY 09/01/19 09/01/19 [Fenofibrate] Metoprolol Tartrate [Lopressor] 25 mg PO BID 09/01/19 09/01/19 Tamsulosin HCl [Flomax] 0.4 mg PO DAILY 09/01/19 09/01/19 Venlafaxine HCl ER [Effexor XR] 150 mg PO W/BRKFST 09/01/19 09/01/19 amLODIPine [Norvasc] 5 mg PO DAILY 09/01/19 09/01/19 buPROPion XL [Wellbutrin XL] 150 mg PO DAILY 09/01/19 09/01/19 hydroCHLOROthiazide 12.5 mg PO DAILY 09/01/19 09/01/19 lisinopriL [Zestril] 20 mg PO BID 09/01/19 09/01/19 Previous Rx's Medication Instructions Recorded Aspirin 325 mg PO DAILY #100 tab 09/03/19 Apixaban [Eliquis Starter Pack 5 - 10 mg PO DIRECTED 30 Days 10/16/23 (for VTE)] #1 each Allergies Allergy/AdvReac Type Severity Reaction Status Date / Time No Known Allergies Allergy Verified 12/31/24 15:39 Review of Systems ROS Other: All systems not noted in ROS Statement are negative. <Lyudmila Nick - Last Filed: 12/31/24 15:35> ROS Other: All systems not noted in ROS Statement are negative. <Violetta Block - Last Filed: 01/01/25 01:59> ROS Statement: Those systems with pertinent positive or pertinent negative responses have been documented in the HPI. Past Medical History Past Medical History: Hyperlipidemia, Hypertension, Prostate Disorder Additional Past Medical History / Comment(s): Kidney Stone. Right hip fracture History of Any Multi-Drug Resistant Organisms: None Reported Past Surgical History: Tonsillectomy Additional Past Surgical History / Comment(s): Right Hip Fracture nailing; reports nails and screws have since been removed Past Anesthesia/Blood Transfusion Reactions: No Reported Reaction Past Psychological History: Anxiety, Depression Smoking Status: Former smoker Past Alcohol Use History: None Reported Past Drug Use History: None Reported - Past Family History Father Family Medical History: Cancer Mother Family Medical History: Diabetes Mellitus Additional Family Medical History / Comment(s): in her 60s Brother(s) Family Medical History: No Reported History <Lyudmila Nick - Last Filed: 12/31/24 15:35> General Exam <Lyudmila Nick - Last Filed: 12/31/24 15:35> General appearance: alert, in no apparent distress Head exam: Present: atraumatic, normocephalic, normal inspection Eye exam: Present: normal appearance, EOMI Neck exam: Present: normal inspection. Absent: meningismus Respiratory exam: Present: normal lung sounds bilaterally. Absent: respiratory distress, wheezes, rales, rhonchi, stridor Cardiovascular Exam: Present: regular rate, normal rhythm, normal heart sounds. Absent: systolic murmur, diastolic murmur, rubs, gallop, clicks Neurological exam: Present: alert, oriented X3 Psychiatric exam: Present: normal affect, normal mood Skin exam: Present: warm, dry, normal color <Violetta Block - Last Filed: 01/01/25 01:59> - General Exam Comments Initial Comments: Visual Physical Exam Vital signs reviewed General: Well-appearing, nontoxic, no acute distress. Head: Normocephalic, atraumatic Eyes: PERRLA, EOMI ENT: Airway patent Chest: Nonlabored breathing Skin: No visual rash, normal skin tone Neuro: Alert and oriented 3 Musculoskeletal: No gross abnormalities (Lyudmila Nick) Course Vital Signs 12/31/24 12/31/24 15:37 21:47 Temperature 97.7 F Pulse Rate 111 H 94 Respiratory 20 18 Rate Blood Pressure 150/82 162/95 O2 Sat by Pulse 99 97 Oximetry Medical Decision Making <Lyudmila Nick - Last Filed: 12/31/24 15:35> - Lab Data Result diagrams: 12/31/24 15:42 12/31/24 15:42 <Violetta Block - Last Filed: 01/01/25 01:59> - Medical Decision Making I completed the quick note portion of this chart signed Lyudmila Nick PA-C (Lyudmila Nick) Was pt. sent in by a medical professional or institution (LEESA Thomas, CLERICAL ORDER FILLER, urgent care, hospital, or long term...) When possible be specific @ -No Did you speak to anyone other than the patient for history (EMS, parent, family, police, friend...)? What history was obtained from this source @ -No Did you review nursing and triage notes (agree or disagree)? Why? @ -I reviewed and agree with nursing and triage notes Were old charts reviewed (outside hosp., previous admission, EMS record, old EKG, old radiological studies, urgent care reports/EKG's, long term records)? Report findings @ -No old charts were reviewed Differential Diagnosis (chest pain, altered mental status, abdominal pain women, abdominal pain men, vaginal bleeding, weakness, fever, dyspnea, syncope, headache, dizziness, GI bleed, back pain, seizure, CVA, palpatations, mental health, musculoskeletal)? @ -Differential includes malignancy, kidney stone, polyp, this is not an all- inclusive list EKG interpreted by me (3pts min.). @ -As above X-rays interpreted by me (1pt min.). @ -None done CT interpreted by me (1pt min.). @ -CT shows no obstructive uropathy or renal calculus visualized. Possible bladder wall mass anteriorly near midline direct visualization recommended. Massive prostatomegaly, correlate with serum PSA. Colonic diverticulosis. Grade 1 anterior listhesis of L4 on L5. Cholelithiasis. U/S interpreted by me (1pt. min.). @ -None done What testing was considered but not performed or refused? (CT, X-rays, U/S, labs)? Why? @ -None What meds were considered but not given or refused? Why? @ -None Did you discuss the management of the patient with other professionals (professionals i.e. , PA, CLERICAL ORDER FILLER, lab, RT, psych nurse, social work administrator, baseball scout, teacher, motor equipment commanding officer, clinical case manager)? Give summary @ -No Was smoking cessation discussed for >3mins.? @ -No Was critical care preformed (if so, how long)? @ -No Were there social determinants of health that impacted care today? How? (Homelessness, low income, unemployed, alcoholism, drug addiction, transportation, low edu. Level, literacy, decrease access to med. care, detention, rehab)? @ -No Was there de-escalation of care discussed even if they declined (Discuss DNR or withdrawal of care, Hospice)? DNR status @ -No What co-morbidities impacted this encounter? (DM, HTN, Smoking, COPD, CAD, Cancer, CVA, ARF, Chemo, Hep., AIDS, mental health diagnosis, sleep apnea, morbid obesity)? @ -None Was patient admitted / discharged? Hospital course, mention meds given and route, prescriptions, significant lab abnormalities, going to OR and other pertinent info. @ -74-year-old male presenting with chief complaint of painless hematuria for the last 2 days. Patient is on Eliquis. Workup is initiated by triage. Patient is later placed in a hallway bed and evaluated by myself. Hemoglobin is stable at 16.9. Urine shows large blood with no signs of infection. CT shows evidence of bladder mass. On reassessment the patient is resting comfortably showing no acute signs of distress. He is educated on today's findings. He will need to follow-up with urology for scope and biopsy. He follows with urologist Dr. Sharpe. Patient is instructed to resume taking his Eliquis as prescribed. Follow-up with PCP. Report back to ER with any new or worsening symptoms. Discussed return parameters and answered all questions. Patient conveyed verbal understanding and agreed to the plan. I discussed this case in detail with my attending Dr. Cardenas Undiagnosed new problem with uncertain prognosis? @ -No Drug Therapy requiring intensive monitoring for toxicity (Heparin, Nitro, In sulin, Cardizem)? @ -No Were any procedures done? @ -No Diagnosis/symptom? @ -Hematuria Acute, or Chronic, or Acute on Chronic? @ -Acute Uncomplicated (without systemic symptoms) or Complicated (systemic symptoms)? @ -Uncomplicated Side effects of treatment? @ -No Exacerbation, Progression, or Severe Exacerbation? @ -No Poses a threat to life or bodily function? How? (Chest pain, [place], [place], pneumonia, PE, COPD, DKA, ARF, appy, cholecystitis, CVA, Diverticulitis, Homicidal, Suicidal, threat to staff... and all critical care pts) @ -Yes, this may be due to malignancy and patient needs to follow-up with urology for further testing (Violetta Block) - Lab Data Lab Results 12/31/24 12/31/24 12/31/24 Range/Units 15:42 15:42 15:42 WBC 11.9 H (3.8-10.6) k/uL RBC 6.20 H (4.30-5.90) m/uL Hgb 16.9 (13.0-17.5) gm/dL Hct 53.4 H (39.0-53.0) % MCV 86.2 (80.0-100.0) fL MCH 27.3 (25.0-35.0) pg MCHC 31.7 (31.0-37.0) g/dL RDW 13.4 (11.5-15.5) % Plt Count 220 (150-450) k/uL MPV 7.3 Neutrophils % 80 % Lymphocytes % 12 % Monocytes % 6 % Eosinophils % 1 % Basophils % 0 % Neutrophils # 9.5 H (1.3-7.7) k/uL Lymphocytes # 1.4 (1.0-4.8) k/uL Monocytes # 0.7 (0-1.0) k/uL Eosinophils # 0.1 (0-0.7) k/uL Basophils # 0.0 (0-0.2) k/uL PT 10.2 (10.0-12.5) sec INR 0.9 (<1.2) APTT 22.3 (22.0-30.0) sec Sodium 140 (137-145) mmol/L Potassium 4.0 (3.5-5.1) mmol/L Chloride 102 (98-107) mmol/L Carbon Dioxide 28 (22-30) mmol/L Anion Gap 10 mmol/L BUN 34 H (9-20) mg/dL Creatinine 1.07 (0.66-1.25) mg/dL Est GFR (CKD-EPI)AfAm 79 (>60 ml/min/1.73 sqM) Est GFR (CKD-EPI)NonAf 68 (>60 ml/min/1.73 sqM) Glucose 114 H (74-99) mg/dL Calcium 10.5 H (8.4-10.2) mg/dL Total Bilirubin 0.5 (0.2-1.3) mg/dL AST 28 (17-59) U/L ALT 31 (4-49) U/L Alkaline Phosphatase 92 (38-126) U/L Total Protein 7.9 (6.3-8.2) g/dL Albumin 4.9 (3.5-5.0) g/dL Urine Color Urine Appearance (Clear) Urine pH (5.0-8.0) Ur Specific Barclay (1.001-1.035) Urine Protein (Negative) Urine Glucose (UA) (Negative) Urine Ketones (Negative) Urine Blood (Negative) Urine Nitrite (Negative) Urine Bilirubin (Negative) Urine Urobilinogen (<2.0) mg/dL Ur Leukocyte Esterase (Negative) Urine RBC (0-5) /hpf Urine WBC (0-5) /hpf Urine Yeast (Budding) (None) /hpf 12/31/24 Range/Units 20:06 WBC (3.8-10.6) k/uL RBC (4.30-5.90) m/uL Hgb (13.0-17.5) gm/dL Hct (39.0-53.0) % MCV (80.0-100.0) fL MCH (25.0-35.0) pg MCHC (31.0-37.0) g/dL RDW (11.5-15.5) % Plt Count (150-450) k/uL MPV Neutrophils % % Lymphocytes % % Monocytes % % Eosinophils % % Basophils % % Neutrophils # (1.3-7.7) k/uL Lymphocytes # (1.0-4.8) k/uL Monocytes # (0-1.0) k/uL Eosinophils # (0-0.7) k/uL Basophils # (0-0.2) k/uL PT (10.0-12.5) sec INR (<1.2) APTT (22.0-30.0) sec Sodium (137-145) mmol/L Potassium (3.5-5.1) mmol/L Chloride (98-107) mmol/L Carbon Dioxide (22-30) mmol/L Anion Gap mmol/L BUN (9-20) mg/dL Creatinine (0.66-1.25) mg/dL Est GFR (CKD-EPI)AfAm (>60 ml/min/1.73 sqM) Est GFR (CKD-EPI)NonAf (>60 ml/min/1.73 sqM) Glucose (74-99) mg/dL Calcium (8.4-10.2) mg/dL Total Bilirubin (0.2-1.3) mg/dL AST (17-59) U/L ALT (4-49) U/L Alkaline Phosphatase (38-126) U/L Total Protein (6.3-8.2) g/dL Albumin (3.5-5.0) g/dL Urine Color Light Red Urine Appearance Cloudy (Clear) Urine pH 6.5 (5.0-8.0) Ur Specific [place]ay 1.019 (1.001-1.035) Urine Protein 1+ H (Negative) Urine Glucose (UA) Negative (Negative) Urine Ketones Negative (Negative) Urine Blood Large H (Negative) Urine Nitrite Negative (Negative) Urine Bilirubin Negative (Negative) Urine Urobilinogen <2.0 (<2.0) mg/dL Ur Leukocyte Esterase Negative (Negative) Urine RBC >182 H (0-5) /hpf Urine WBC 1 (0-5) /hpf Urine Yeast (Budding) Rare H (None) /hpf Disposition <Lyudmila Nick - Last Filed: 12/31/24 15:35> Is patient prescribed a controlled substance at d/c from ED?: No Time of Disposition: 21:20 <Violetta Block - Last Filed: 01/01/25 01:59> Clinical Impression: Hematuria Disposition: HOME SELF-CARE Condition: Good Instructions (If sedation given, give patient instructions): Hematuria (ED) Additional Instructions: Follow-up with urology. You will need a scope done to visualize the mass on your bladder and perform further testing. Report back to ER with any new or worsening symptoms. Follow-up with PCP. Resume taking your Eliquis as normally prescribed Referrals: Kelly Solomon MD [Primary Care Provider] - 1-2 days Sebastian Sharpe MD [STAFF PHYSICIAN] - 1-2 days
[2024-12-31 15:39] VITALS: TEMP 97.7
[2024-12-31 15:55] LABS: Basophils % (A) 0 %; Eosinophils # (A) 0.1 k/uL (0-0.7); Eosinophils % (A) 1 %; HCT 53.4 % (39.0-53.0); HGB 16.9 gm/dL (13.0-17.5); Lymphocytes # (A) 1.4 k/uL (1.0-4.8); Lymphocytes % (A) 12 %; MCH 27.3 pg (25.0-35.0); MCHC 31.7 g/dL (31.0-37.0); MCV 86.2 fL (80.0-100.0); Mean Platelet Volume 7.3; Monocytes # (A) 0.7 k/uL (0-1.0); Monocytes % (A) 6 %; Neutrophils # (A) 9.5 k/uL (1.3-7.7); Neutrophils % (A) 80 %; Platelet Count 220 k/uL (150-450); RDW 13.4 % (11.5-15.5); WBC 11.9 k/uL (3.8-10.6)
[2024-12-31 16:08] LABS: INR 0.9 (<1.2); Partial Thromboplastin Time 22.3 sec (22.0-30.0); Prothrombin Time 10.2 sec (10.0-12.5)
[2024-12-31 16:11] LABS: ALT 31 U/L (4-49); AST 28 U/L (17-59); African American GFR (CKD) 79 (>60 ml/min/1.73 sqM); Albumin 4.9 g/dL (3.5-5.0); Alkaline Phosphatase 92 U/L (38-126); Anion Gap 10 mmol/L; Blood Urea Nitrogen 34 mg/dL (9-20); Calcium 10.5 mg/dL (8.4-10.2); Carbon Dioxide 28 mmol/L (22-30); Chloride 102 mmol/L (98-107); Glucose 114 mg/dL (74-99); Non-African American GFR(CKD) 68 (>60 ml/min/1.73 sqM); Sodium 140 mmol/L (137-145); Total Bilirubin 0.5 mg/dL (0.2-1.3); Total Protein 7.9 g/dL (6.3-8.2)
--- NOTE | 2024-12-31 16:20 | CT ---
EXAMINATION TYPE: CT abdomen pelvis wo con DATE OF EXAM: 12/31/2024 4:08 PM COMPARISON: CT abdomen pelvis most recent from 12/14/2023 CLINICAL INDICATION: Male, 74 years old with history of hematuria; hematuria TECHNIQUE: Axial CT abdomen pelvis wo con;Sagittal and coronal reformats were created on a separate workstation. Contrast used: mL of , (none if empty) Oral contrast used: without Oral Contrast (none if empty) CT DLP: 821 mGycm, Automated exposure control for dose reduction was used. FINDINGS: LOWER CHEST: Unremarkable ABDOMEN LIVER: Unremarkable GALLBLADDER AND BILE DUCTS: Layering increased densities within the lumen consistent with gallstones are present. PANCREAS: Unremarkable. SPLEEN: Unremarkable. ADRENAL GLANDS: Unremarkable. KIDNEYS AND URETERS: No evidence of hydronephrosis or renal calculus. The ureters are unremarkable. PELVIS BLADDER: small protuberance anterior to the bladder near midline measuring 11 x 9 mm. REPRODUCTIVE: Prostate is enlarged in size measuring 6.9 cm in transverse dimension. ABDOMEN & PELVIS STOMACH AND BOWEL: No evidence of bowel obstruction. Appendix normal. PERITONEUM/RETROPERITONEUM: No evidence of pneumoperitoneum or free fluid. VASCULATURE: No evidence of aortic aneurysm. MUSCULOSKELETAL: No acute osseous abnormalities. Moderate disc degeneration changes are present throu ghout the thoracolumbar spine. Previous screw fixation changes of the right femur. Grade 1 anterolist hesis of L4 and L5. Moderate degeneration changes of the spine. LYMPH NODES: No gross evidence for lymphadenopathy. SOFT TISSUE/ABDOMINAL WALL: Fat-containing inguinal hernias. IMPRESSION: 1. No obstructive uropathy or renal calculus visualized. 2. Possible bladder wall mass anteriorly near midline, direct visualization recommended. 3. Massive prostatomegaly, correlate with serum PSA. 4. Colonic diverticulosis. 5. Grade 1 anterolisthesis of L4 on L5. 6. Cholelithiasis. [facility], , 12/31/2024 4:18 PM
[2024-12-31 21:12] LABS: Appearance,Urine Cloudy (Clear); Bilirubin,Urine Negative (Negative); Blood,Urine Large (Negative); Budding Yeast,Urine Rare /hpf; Color,Urine Light Red; Glucose,Urine (UA) Negative (Negative); Ketones,Urine Negative (Negative); Leukocyte Esterase,Urine Negative (Negative); Nitrite,Urine Negative (Negative); PH, Urine 6.5 (5.0-8.0); Protein,Urine 1+ (Negative); RBC,Urine >182 /hpf (0-5); Specific Gravity,Urine 1.019 (1.001-1.035); Urobilinogen,Urine <2.0 mg/dL (<2.0); WBC,Urine 1 /hpf (0-5)
[2024-12-31 21:48] VITALS: BP 162/95; PULSE 94; RESP 18
== END 2024-12-31 21:54 | disposition home or self-care (01) ==
LOC: EC 15:23
DX: R31.9 Hematuria, unspecified (principal); Z87.891 Personal history of nicotine dependence
CPT/HCPCS: 36415; 74176; 80053; 81001; 85025; 85610; 85730; 99284

== ENCOUNTER → 2025-03-16 | Outpatient (CLI) | payer MEDICARE ==
[2025-03-16 13:13] LABS: Basophils # (A) 0.05 X 10*3/uL (0.00-0.10); Basophils % (A) 0.6 %; Eosinophils # (A) 0.16 X 10*3/uL (0.04-0.35); Eosinophils % (A) 1.9 %; HCT 50.9 % (39.6-50.0); HGB 16.7 g/dL (13.0-17.0); Lymphocytes # (A) 1.37 X 10*3/uL (0.90-5.00); Lymphocytes % (A) 16.4 %; MCH 28.1 pg (27.0-32.0); MCHC 32.8 g/dL (32.0-37.0); MCV 85.5 FL (80.0-97.0); Mean Platelet Volume 9.7 FL (9.5-12.2); Monocytes # (A) 0.64 X 10*3/uL (0.20-1.00); Monocytes % (A) 7.7 %; NRBC Per 100 WBC 0 X 10*3/uL (0.00-0.01); Neutrophils # (A) 6.08 X 10*3/uL (1.80-7.70); Neutrophils % (A) 72.9 %; Platelet Count 295 X 10*3/uL (140-440); RBC 5.95 X 10*6/uL (4.40-5.60); WBC 8.34 X 10*3/uL (4.50-10.00)
[2025-03-16 13:16] LABS: BUN/Creat Ratio 26.91 Ratio (12.00-20.00); Blood Urea Nitrogen 29.6 mg/dL (9.0-27.0); Calcium 10.3 mg/dL (8.7-10.3); Carbon Dioxide 22.6 mmol/L (21.6-31.8); Chloride 101 mmol/L (96-109); Glucose 105 mg/dL (70-110); Potassium 4.1 mmol/L (3.5-5.5); Sodium 138 mmol/L (135-145)
[2025-03-16 14:13] LABS: Appearance,Urine Clear (Clear); Bilirubin,Urine Negative (Negative); Blood,Urine Negative (Negative); Color,Urine Yellow (Yellow); Ketones,Urine Negative (Negative); Nitrite,Urine Negative (Negative); PH, Urine 5.5; Specific Gravity,Urine 1.022 (1.001-1.030)
== END | disposition home or self-care (01) ==
LOC: LABPAT 10:11
PROVIDERS: ATTEND Urology
DX: Z01.812 Encounter for preprocedural laboratory examination (principal); D49.4 Neoplasm of unspecified behavior of bladder
CPT/HCPCS: 80048; 81003; 85025; 87077; 87086; 87186

== ENCOUNTER 2025-03-22 07:27 | Emergency (ER) | payer MEDICARE ==
[2025-03-22 07:34] VITALS: RESP 18
--- NOTE | 2025-03-22 07:57 | ED ---
General Adult HPI - General Chief complaint: Urogenital Stated complaint: urogenital Time Seen by Provider: 03/22/25 07:33 Source: patient, EMS, RN notes reviewed, old records reviewed Mode of arrival: EMS Limitations: no limitations - History of Present Illness Initial comments: 75-year-old male with history of bladder mass and enlarged prostate presenting for evaluation of inability to urinate since yesterday evening. Patient is in distress and is having pain and discomfort in the lower abdomen which he believes is related to his bladder. He has a scheduled surgery for known bladder mass in 4 days with urology. He is currently on antibiotics for UTI. He has no upper abdominal pain. No flank pain. No fever. No vomiting. - Related Data Home Medications Medication Instructions Recorded Confirmed Fenofibrate Nanocrystallized 48 mg PO DAILY 09/01/19 03/19/25 [Fenofibrate] Venlafaxine HCl ER [Effexor XR] 150 mg PO DAILY 09/01/19 03/19/25 hydroCHLOROthiazide 12.5 mg PO DAILY 09/01/19 03/19/25 Apixaban [Eliquis] 2.5 mg PO BID 03/19/25 03/19/25 Escitalopram Oxalate [Lexapro] 10 mg PO DAILY 03/19/25 03/19/25 Vitamin B Complex 1 each PO DAILY 03/19/25 03/19/25 Vitamin D (Unknown Dose) 1 tab PO DAILY 03/19/25 03/19/25 Vitamin K2 (Unknown Dose) 1 tab PO DAILY 03/19/25 03/19/25 Zinc (Unknown Dose) 1 tab PO DAILY 03/19/25 03/19/25 amLODIPine 10 mg PO DAILY 03/19/25 03/19/25 Allergies Allergy/AdvReac Type Severity Reaction Status Date / Time No Known Allergies Allergy Verified 03/19/25 13:36 Review of Systems ROS Statement: Those systems with pertinent positive or pertinent negative responses have been documented in the HPI. ROS Other: All systems not noted in ROS Statement are negative. Past Medical History Past Medical History: Hyperlipidemia, Hypertension, Prostate Disorder Additional Past Medical History / Comment(s): Kidney Stone. Right hip fracture History of Any Multi-Drug Resistant Organisms: None Reported Past Surgical History: Tonsillectomy Additional Past Surgical History / Comment(s): Right Hip Fracture nailing; reports nails and screws have since been removed Past Anesthesia/Blood Transfusion Reactions: No Reported Reaction Past Psychological History: Anxiety, Depression Smoking Status: Former smoker Past Alcohol Use History: None Reported Past Drug Use History: None Reported - Past Family History Father Family Medical History: Cancer Mother Family Medical History: Diabetes Mellitus Brother(s) Family Medical History: No Reported History General Exam Limitations: no limitations General appearance: alert, in distress Head exam: Present: atraumatic, normocephalic Eye exam: Present: normal appearance, PERRL ENT exam: Present: normal exam Neck exam: Present: normal inspection. Absent: tenderness, meningismus Respiratory exam: Present: normal lung sounds bilaterally. Absent: respiratory distress, wheezes Cardiovascular Exam: Present: regular rate, normal rhythm GI/Abdominal exam: Present: soft, tenderness (Suprapubic). Absent: distended Extremities exam: Present: normal inspection, normal capillary refill Neurological exam: Present: alert, oriented X3, CN II-XII intact, normal gait. Absent: motor sensory deficit Psychiatric exam: Present: anxious Skin exam: Present: warm, dry, intact Course Vital Signs 03/22/25 07:32 Temperature 97.9 F Pulse Rate 111 H Respiratory 18 Rate Blood Pressure 159/91 O2 Sat by Pulse 100 Oximetry Medical Decision Making - Medical Decision Making Was pt. sent in by a medical professional or institution (LEESA Thomas, SALES TECHNICIAN HOME THEATER, urgent care, hospital, or shelter...) When possible be specific @ -No Did you speak to anyone other than the patient for history (EMS, parent, family, police, friend...)? What history was obtained from this source @ -No Did you review nursing and triage notes (agree or disagree)? Why? @ -I reviewed and agree with nursing and triage notes Were old charts reviewed (outside hosp., previous admission, EMS record, old EKG, old radiological studies, urgent care reports/EKG's, shelter records)? Report findings @ -No old charts were reviewed Differential Abdominal Pain Men: Appendicitis, cholecystitis, diverticulosis, ischemic bowel, pancreatitis, hepatitis, UTI, gastroenteritis, AAA, incarcerated hernia, bowel obstruction, constipation, inflammatory bowel, hepatitis, peptic ulcer disease, splenic infarction, perforated viscus, testicular torsion, this is not meant to be an all-inclusive list EKG interpreted by me (3pts min.). @ -As above X-rays interpreted by me (1pt min.). @ -None done CT interpreted by me (1pt min.). @ -None done U/S interpreted by me (1pt. min.). @ -None done What testing was considered but not performed or refused? (CT, X-rays, U/S, labs)? Why? @ -None What meds were considered but not given or refused? Why? @ -None Did you discuss the management of the patient with other professionals (professionals i.e. , PA, SALES TECHNICIAN HOME THEATER, lab, RT, psych nurse, licensed master social worker, senior ecologist, teacher, global safety officer, case managers)? Give summary @ -No Was smoking cessation discussed for >3mins.? @ -No Was critical care preformed (if so, how long)? @ -No Were there social determinants of health that impacted care today? How? (Homelessness, low income, unemployed, alcoholism, drug addiction, transportation, low edu. Level, literacy, decrease access to med. care, custodial, rehab)? @ -No Was there de-escalation of care discussed even if they declined (Discuss DNR or withdrawal of care, Hospice)? DNR status @ -No What co-morbidities impacted this encounter? (DM, HTN, Smoking, COPD, CAD, Cancer, CVA, ARF, Chemo, Hep., AIDS, mental health diagnosis, sleep apnea, morbid obesity)? @ -None Was patient admitted / discharged? Hospital course, mention meds given and route, prescriptions, significant lab abnormalities, going to OR and other pertinent info. @ -Concern for urinary retention, Krishnan catheter placed and patient has complete relief of symptoms with significant urine output. Repeat urinalysis and urine culture is sent. Patient will continue antibiotics as prescribed by his urologist. He will maintain Krishnan catheter until his procedure which is in 3 days. Undiagnosed new problem with uncertain prognosis? @ -No Drug Therapy requiring intensive monitoring for toxicity (Heparin, Nitro, Insulin, Cardizem)? @ -No Were any procedures done? @ -No Diagnosis/symptom? @ -Urinary retention, known bladder mass, enlarged prostate Acute, or Chronic, or Acute on Chronic? @Acute Uncomplicated (without systemic symptoms) or Complicated (systemic symptoms)? @ -Default Side effects of treatment? @ -No Exacerbation, Progression, or Severe Exacerbation? @ -No Poses a threat to life or bodily function? How? (Chest pain, [place], [place], pneumonia, PE, COPD, DKA, ARF, appy, cholecystitis, CVA, Diverticulitis, Homicidal, Suicidal, threat to staff... and all critical care pts) @ -No Disposition Clinical Impression: Acute retention of urine Disposition: HOME SELF-CARE Condition: Good Instructions (If sedation given, give patient instructions): Urinary Retention in Men (ED) Is patient prescribed a controlled substance at d/c from ED?: No Referrals: Luca Ridley MD [Primary Care Provider] - 1-2 days Sebastian Sharpe MD [STAFF PHYSICIAN] - 1-2 days Time of Disposition: 08:10
[2025-03-22 08:15] LABS: Appearance,Urine Clear (Clear); Bilirubin,Urine Negative (Negative); Blood,Urine Negative (Negative); Color,Urine Light Yellow; Glucose,Urine (UA) Negative (Negative); Ketones,Urine Negative (Negative); Leukocyte Esterase,Urine Negative (Negative); Nitrite,Urine Negative (Negative); PH, Urine 6.5 (5.0-8.0); Protein,Urine Negative (Negative); Specific Gravity,Urine 1.019 (1.001-1.035); Urobilinogen,Urine <2.0 mg/dL (<2.0)
[2025-03-22 08:46] VITALS: BP 134/92; PULSE 102; TEMP 97.8
== END 2025-03-22 08:46 | disposition home or self-care (01) ==
LOC: EC 07:27
DX: N40.1 Benign prostatic hyperplasia with lower urinary tract symptoms (principal); Z87.891 Personal history of nicotine dependence
CPT/HCPCS: 51702; 51798; 81003; 99285